=== PATIENT | female | born 1955 | race Caucasian/White ===

== ENCOUNTER 2018-12-17 04:16 | Inpatient (IN) | payer OTHER ==
[2018-12-17 04:57] LABS: ADD MAN DIFF? NO
[2018-12-17 04:59] LABS: WHITE BLOOD COUNT 16.3 10^3/ul (4.8-10.8)
[2018-12-17 04:59] LABS: BASOPHIL # 0.1 10^3/ul (0.0-0.1); BASOPHILS % 0.8 % (0.0-2.0); EOSINOPHILS # 0.5 10^3/ul (0.0-0.5); EOSINOPHILS % 2.8 % (0.0-7.0); HEMATOCRIT 32.4 % (37.0-47.0); HEMOGLOBIN 9.8 g/dl (12.0-16.0); LYMPHOCYTES # 1.4 10^3/ul (0.8-2.9); LYMPHOCYTES % 8.4 % (15.0-51.0); MEAN CORPUSCULAR HEMOGLOBIN 27.2 pg (29.0-33.0); MEAN CORPUSCULAR HGB CONC 30.2 g/dl (32.0-37.0); MEAN PLATELET VOLUME 10.4 fl (7.4-10.4); MONOCYTE # 0.7 10^3/ul (0.3-0.9); MONOCYTES % 4.5 % (0.0-11.0); NEUTROPHILS % 79.6 % (39.0-77.0); PLATELET COUNT 289 10^3/UL (140-415)
[2018-12-17 05:01] LABS: Blood Gas IEPAP 15/5; MODE MASK - BIPAP; MetHgb Venous 1.6 %; Sample Type Blood venous; Site VENOUS LINE; Venous COHb 0.3 %; Venous Fraction OxyHgb 17.9 %; Venous Oxygen Sat 18.2 mmHG (55.0-75.0)
[2018-12-17 05:15] LABS: ANION GAP 7 (5-13); BLOOD UREA NITROGEN 27 mg/dl (7-20); CALCIUM 9.7 mg/dl (8.4-10.2); CARBON DIOXIDE 30 mmol/L (21-31); CHLORIDE 98 mmol/L (97-110); CREATININE 1.07 mg/dl (0.44-1.00); Estimated GFR 52 mL/min (>60); GLUCOSE 187 mg/dl (70-220); POTASSIUM 4.6 mmol/L (3.5-5.1); SODIUM 135 mmol/L (135-144)
[2018-12-17 05:27] LABS: B-TYPE NATRIURETIC PEPTIDE 4670 PG/ML (0-125); TROPONIN-I < 0.012 ng/ml (0.000-0.120)
[2018-12-17] MEDS: CEFEPIME 1GM/50 ML (PMX) 50 ML IVPB ×3 (05:56→22:08)
[2018-12-17] MEDS ORDERED: ONDANSETRON 4 MG INJ IV ×2 (06:00→06:30)
[2018-12-17] MEDS ORDERED: ACETAMINOPHEN 325 MG TAB PO ×2 (06:00→06:30)
[2018-12-17] MEDS ORDERED: DOCUSATE SODIUM 100 MG CAP PO (06:30)
[2018-12-17] MEDS ORDERED: DEXTROSE 50% 50 ML SYRINGE IV ×2 (06:30)
[2018-12-17] MEDS ORDERED: BACLOFEN 10 MG TAB PO (06:30)
[2018-12-17] MEDS ORDERED: GLUCAGON 1 MG INJ IM (06:30)
[2018-12-17] MEDS ORDERED: GLUCOSE GEL 15 GRAM TUBE BUCCAL (06:30)
[2018-12-17] MEDS ORDERED: NACL 0.9% 3 ML SYG IV (06:30)
[2018-12-17] MEDS ORDERED: GLUCOSE GEL 15 GRAM TUBE PO ×2 (06:30)
[2018-12-17] MEDS: FUROSEMIDE 40 MG INJ IV ×2 (07:20→13:30)
[2018-12-17] MEDS: VANCOMYCIN 1 GM (PMX) 250 ML IVPB (07:21)
[2018-12-17] MEDS: ACCU-CHEK XX ×4 (07:22→21:00)
[2018-12-17] MEDS: LORAZEPAM 1 MG TAB PO ×3 (09:58→23:21)
[2018-12-17] MEDS: HYDROCODONE/APAP (5/325) TAB PO ×3 (09:59→23:21)
[2018-12-17] MEDS: LEVETIRACETAM 500 MG TAB PO ×2 (09:59→20:31)
[2018-12-17] MEDS: BUSPIRONE 5 MG TAB PO (09:59)
[2018-12-17] MEDS: GLIMEPIRIDE 4 MG TAB PO (10:00)
[2018-12-17] MEDS: BENAZEPRIL 10 MG TAB PO (10:00)
[2018-12-17] MEDS: ENOXAPARIN 40 MG/0.4 ML SYG SC (10:01)
[2018-12-17] MEDS: FAMOTIDINE 20 MG INJ IV ×2 (10:01→20:30)
[2018-12-17 10:05] LABS: LACTIC ACID 0.9 mmol/L (0.5-2.0)
[2018-12-17] MEDS ORDERED: METHADONE (1 MG/ML 5 ML PO UD SYG) PO (12:30)
[2018-12-17] MEDS: METHADONE 1 MG/ML (ORAL SOLN) PO (13:07)
[2018-12-17 14:57] LABS: D-DIMER 8583.16 ng/ml (<460)
[2018-12-17] MEDS: DONEPEZIL 10 MG TAB PO (20:31)
[2018-12-17] MEDS: INSULIN GLARGINE [LANTus] (100 UNITS/ML) SYG SC (22:19)
[2018-12-17] MEDS: ALTEPLASE (CATHFLO) 2 MG INJ CATHETER (23:23)
[2018-12-18 05:53] LABS: ADD MAN DIFF? NO
[2018-12-18 06:00] LABS: BASOPHIL # 0.1 10^3/ul (0.0-0.1); BASOPHILS % 0.8 % (0.0-2.0); EOSINOPHILS # 0.3 10^3/ul (0.0-0.5); EOSINOPHILS % 3.5 % (0.0-7.0); HEMATOCRIT 32.2 % (37.0-47.0); HEMOGLOBIN 9.8 g/dl (12.0-16.0); LYMPHOCYTES # 1.3 10^3/ul (0.8-2.9); LYMPHOCYTES % 14.4 % (15.0-51.0); MEAN CORPUSCULAR HEMOGLOBIN 26.9 pg (29.0-33.0); MEAN CORPUSCULAR HGB CONC 30.4 g/dl (32.0-37.0); MEAN CORPUSCULAR VOLUME 88.5 fl (82.0-101.0); MEAN PLATELET VOLUME 10.4 fl (7.4-10.4); MONOCYTE # 0.7 10^3/ul (0.3-0.9); MONOCYTES % 7.1 % (0.0-11.0); NEUTROPHIL # 6.7 10^3/ul (1.6-7.5); NEUTROPHILS % 72.4 % (39.0-77.0); PLATELET COUNT 272 10^3/UL (140-415); RED BLOOD COUNT 3.64 10^6/ul (4.20-5.40); RED CELL DISTRIBUTION WIDTH 13.9 % (11.5-14.5)
[2018-12-18 06:00] LABS: WHITE BLOOD COUNT 9.3 10^3/ul (4.8-10.8)
[2018-12-18] MEDS ORDERED: METHADONE 1 MG/ML (ORAL SOLN) PO (06:00)
[2018-12-18] MEDS: CEFEPIME 1GM/50 ML (PMX) 50 ML IVPB ×3 (06:08→21:58)
[2018-12-18] MEDS: METHADONE 1 MG/ML (ORAL SOLN) PO (06:22)
[2018-12-18 06:56] LABS: ANION GAP 5 (5-13); BLOOD UREA NITROGEN 18 mg/dl (7-20); CALCIUM 9.8 mg/dl (8.4-10.2); CARBON DIOXIDE 39 mmol/L (21-31); CHLORIDE 93 mmol/L (97-110); CREATININE 0.87 mg/dl (0.44-1.00); Estimated GFR > 60 mL/min (>60); GLUCOSE 146 mg/dl (70-220); POTASSIUM 3.9 mmol/L (3.5-5.1); SODIUM 137 mmol/L (135-144)
[2018-12-18] MEDS: ACCU-CHEK XX ×4 (07:25→21:00)
[2018-12-18] MEDS: LEVETIRACETAM 500 MG TAB PO ×2 (08:45→20:16)
[2018-12-18] MEDS: BUSPIRONE 5 MG TAB PO (08:45)
[2018-12-18] MEDS: FAMOTIDINE 20 MG INJ IV ×3 (08:46→20:16)
[2018-12-18] MEDS: BENAZEPRIL 10 MG TAB PO (08:46)
[2018-12-18] MEDS: GLIMEPIRIDE 4 MG TAB PO (08:46)
[2018-12-18] MEDS: LORAZEPAM 1 MG TAB PO ×3 (08:50→20:56)
[2018-12-18] MEDS: ENOXAPARIN 40 MG/0.4 ML SYG SC (09:10)
[2018-12-18 09:49] LABS: HEMOGLOBIN A1C 6.9 % (0-5.9)
[2018-12-18] MEDS: ALTEPLASE (CATHFLO) 2 MG INJ CATHETER (11:43)
[2018-12-18] MEDS: INSULIN ASPART [NOVOLOG] 3 ML PEN SC ×3 (12:16→21:50)
[2018-12-18] MEDS: HYDROCODONE/APAP (5/325) TAB PO ×2 (15:32→20:56)
[2018-12-18] MEDS: DONEPEZIL 10 MG TAB PO (20:17)
[2018-12-18] MEDS: METOPROLOL 50 MG TAB PO (21:40)
[2018-12-18] MEDS: INSULIN GLARGINE [LANTus] (100 UNITS/ML) SYG SC (21:50)
[2018-12-19] MEDS: HYDROCODONE/APAP (5/325) TAB PO ×2 (02:47→10:52)
[2018-12-19] MEDS: LORAZEPAM 1 MG TAB PO ×3 (02:47→17:11)
[2018-12-19] MEDS: CEFEPIME 1GM/50 ML (PMX) 50 ML IVPB ×2 (05:56→14:09)
[2018-12-19] MEDS: METHADONE 1 MG/ML (ORAL SOLN) PO (05:57)
[2018-12-19] MEDS: FUROSEMIDE 40 MG INJ IV (05:57)
[2018-12-19] MEDS: LEVETIRACETAM 500 MG TAB PO (08:06)
[2018-12-19] MEDS: METOPROLOL 50 MG TAB PO (08:06)
[2018-12-19] MEDS: GLIMEPIRIDE 4 MG TAB PO (08:06)
[2018-12-19] MEDS: BUSPIRONE 5 MG TAB PO (08:07)
[2018-12-19] MEDS: FAMOTIDINE 20 MG TAB PO (08:07)
[2018-12-19] MEDS: BENAZEPRIL 10 MG TAB PO ×2 (08:07→10:52)
[2018-12-19] MEDS: ACCU-CHEK XX ×2 (08:14→11:49)
[2018-12-19] MEDS: INSULIN ASPART [NOVOLOG] 3 ML PEN SC ×2 (08:14→12:17)
[2018-12-19] MEDS: ENOXAPARIN 40 MG/0.4 ML SYG SC (08:14)
[2018-12-20] MEDS ORDERED: BENAZEPRIL 40 MG TAB PO (09:00)
[2018-12-20] MEDS ORDERED: BENAZEPRIL 10 MG TAB PO (09:00)
== END 2018-12-19 19:00 | DRG 292 ==
LOC: E/R 04:16 → TEL 05:40
PROVIDERS: Internal Medicine
PROC: 4A033R1 Measurement of Arterial Saturation, Peripheral, Percutaneous Approach (ICD-10-PCS; principal; 2018-12-17)
DX: I13.0 Hypertensive heart and chronic kidney disease with heart failure and stage 1 through stage 4 chronic kidney disease, or unspecified chronic kidney disease (principal); F11.20 Opioid dependence, uncomplicated; L03.115 Cellulitis of right lower limb; E11.22 Type 2 diabetes mellitus with diabetic chronic kidney disease; I50.9 Heart failure, unspecified; F03.90 Unspecified dementia, unspecified severity, without behavioral disturbance, psychotic disturbance, mood disturbance, and anxiety; N18.3 Chronic kidney disease, stage 3 (moderate); G89.4 Chronic pain syndrome; I45.10 Unspecified right bundle-branch block; D72.829 Elevated white blood cell count, unspecified; E11.621 Type 2 diabetes mellitus with foot ulcer; L97.519 Non-pressure chronic ulcer of other part of right foot with unspecified severity; Z88.0 Allergy status to penicillin; Z89.411 Acquired absence of right great toe; Z79.4 Long term (current) use of insulin
CPT/HCPCS: 36415; 71045; 80048; 82803; 82962; 83036; 83605; 83880; 84443; 84484; 85025; 85378; 85651; 87040-91; 87081; 93005; 93306; 94660; 99285-25